=== PATIENT | male | born 1955 | race Caucasian/White ===

== ENCOUNTER 2018-01-19 13:20 | Inpatient (IN) ==
[2018-01-19] MEDS ORDERED: Bisacodyl 10 MG Supp RECTAL PRN (15:31)
[2018-01-19] MEDS ORDERED: Dextrose 50% in Water 50 ML Vial IV.PUSH PRN (15:39)
--- NOTE | 2018-01-19 17:25 | P.HP ---
History of Present Illness Service: [facility] Primary Care Physician: No Primary Care Physician Chief Complaint: Lower extremity weakness History of Present Illness: Patient is a 63-year-old male with past medical history of BPH, diabetes type 2 , peripheral neuropathy who initially came into [facility] near [facility] in August diagnosed with DKA. Patient was readmitted to the hospital in [place] for a 3-week stay for pneumonia. He was doing well but has been back to [facility] in [place] due to increasing or worsening bilateral lower extremity weakness, dizziness. Patient also reports multiple episodes of dropping his blood pressure. Per review of records patient was working with physical therapy in the outpatient setting and felt dizzy and noted that his blood pressure dropped to 60/45 and was transferred to the hospital. He was diagnosed with orthostatic hypotension secondary to autonomic peripheral neuropathy as well as volume depletion. Patient was provided with compression stockings, abdominal binder, his Coreg was changed to metoprolol. He was seen by plumber assistant and recommended to have outpatient tilt table test. Per review of records, patient also was diagnosed with diabetic neuropathy versus spinal stenosis versus CI DP and was started on Lyrica 50 mg p.o. 3 times a day as needed and recently started on prednisone during his previous hospital admission. His hospitalization was also complicated with hyponatremia , diagnosed with systolic congestive heart failure with an EF of 40% stress test showed no ischemic changes, EKG showed sinus tach with no acute ischemic changes. Patient also found to have urinary retention were in Chowdhury catheter was placed recommended to follow-up for cystoscopy and urodynamics in the outpatient. Currently on finasteride versus Flomax secondary to syncopal episodes and orthostatic hypotension. He was admitted to [place] [facility] on . While in [place], patient continued to have orthostatic hypotension. His antihypertensive medications were held. Bilateral lower extremity weakness continues. MRI of the brain was negative. MRI of the lumbar spine showed degenerative disease at both L5-S1 and L4-L5, impressive muscular edema in the paravertebral musculature posteriorly, correlate for diffuse myositis. MRI of the cervical spine showed multilevel disc protrusions with mild degree of canal stenosis at C4-5 and C5-6 and a symmetrically left-sided foraminal stenosis at C6-7. Thoracic MRI showed mild compression fracture deformities at T5, T6 and T7 vertebral bodies with mild marrow edema. Appears to be acute on subacute. No retropulsion. Mild disc bulge at T8-9 with mild flattening of the anterior thecal sac. Neurosurgery was consulted for the patient for continued weakness in his bilateral lower extremities and multiple falls since August. 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 No intervention recommended from the neurological standpoint. Patient was seen by Dr. 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 Recommending IVIG or plasmapheresis. He is now transferred to the inpatient setting for IVIG administration. Patient seen and examined today. at the bedside. Reports aside from bilateral lower extremity weakness states he is doing okay. Reports urinary retention with Chowdhury catheter in place. Denies any dysuria but states because of the urinary tract infection he is unable to void properly and having dysuria prior. After being given antibiotics states that the dysuria has improved. States bowel incontinence. States he is able to feel the urge but has no control on it. States after his hospitalization for DKA his diabetes has been fairly controlled at home. Patient states that he was also worked up for Nurys Sprague in [facility]. States he continues to have occasional dizziness and orthostatic hypotension but is able to be better compared to before as he prepares himself to be sitting up prior to standing. Denies pain and discomfort. Denies SOB/ dyspnea. Denies chest pain, palpitations, headaches. Denies fevers, chills, n/v/d. Denies dysuria. Inpatient Certification: I certify that the inpatient services were ordered in accordance with Medicare regulations governing the order. This includes certification that hospital inpatient services are reasonable and necessary and in the case of services not specified as inpatient-only under 42 CFR 419.22(n), that they are appropriately provided as inpatient services in accordance to with the 2-midnight benchmark under 43 CFR 412.3(e) Estimated Total Length of Stay (Days): 2 Plans for Post Hospital Care: Other Review of Systems All other systems reviewed negative except as stated [facility] - History History Provided By: Family Member - Medical History Medical History: Medical History (Last Updated 01/10/18 @ 23:02 by Carine Vasquez LPN) BPH (benign prostatic hyperplasia) Blind in both eyes Cataracts, bilateral Diabetes mellitus Hypertension - Surgical History Surgical History: Surgical History (Last Updated 01/10/18 @ 23:02 by Carine Vasquez LPN) No history of previous surgery - Family History Family History: Family History (Last Updated 01/19/18 @ 17:12 by JEFFREY York) Father Heart attack Mother Diabetes - Social History I have reviewed the patient's Social History: Yes - Tobacco History Second Hand Smoke Exposure: No Smoking Status: Never smoker - Alcohol History How Often Do You Have a Drink Containing Alcohol: Never - Substance Use History Substance History: No History of Abuse Medications and Allergies Active Medications: Active Medications Acetaminophen (Tylenol) 650 mg PO Q4H PRN PRN Reason: Temp > 100.4 Al Hydroxide/Mg Hydroxide (Milk Of Magnesia Liq) 30 ml PO Q12H PRN PRN Reason: Mild Constipation Aspirin (Ecotrin) 81 mg PO DAILY GABRIELA Bisacodyl (Dulcolax Supp) 10 mg RECTAL DAILY PRN PRN Reason: SEVERE CONSITIPATION Dextrose (D50w Vial) 50 ml IV.PUSH UNSCH PRN PRN Reason: PER HYPOGLYCEMIA PROTOCOL Enoxaparin Sodium (Lovenox Inj) 40 mg SQ Q24H GABRIELA Famotidine (Pepcid) 20 mg PO BID GABRIELA Finasteride (Proscar) 5 mg PO DAILY GABRIELA Glucagon (Glucagon Inj) 1 mg OTHER PRN PRN PRN Reason: for Hypoglycemia Protocol Insulin Aspart (Novolog Insulin Correctional Sugar Inj) 0 unit SQ ACHS GABRIELA; Protocol Insulin Detemir (Levemir Inj) 10 unit SQ BID GABRIELA Lactulose (Lactulose Liq) 30 ml PO DAILY PRN PRN Reason: SEVERE CONSITIPATION Midodrine (Proamatine) 5 mg PO TID@0700,1200,1700 GABRIELA Ondansetron HCl (Zofran Inj) 4 mg IV.PUSH Q6H PRN PRN Reason: NAUSEA OR VOMITING Oxycodone/Acetaminophen (Percocet 5/325 Mg) 1 tab PO Q6H PRN PRN Reason: Pain 5-10 Potassium Chloride (K-Dur) 20 meq PO BID [facility] Pregabalin (Lyrica) 50 mg PO Q8HR GABRIELA Senna/Docusate Sodium (Li-Colace) 1 tab PO BID [facility] Sennosides (Senokot) 17.2 mg PO Q12H PRN PRN Reason: Moderate Constipation Sodium Chloride (Ns Flush) 2 ml IV.FLUSH BID GABRIELA Sodium Chloride (Ns Flush) 2 ml IV.FLUSH PRN PRN PRN Reason: FLUSH AFTER USING IV ACCESS Tetracycline HCl (Sumycin) 500 mg PO Q6HR [facility] Allergies Allergy/AdvReac Type Severity Reaction Status Date / Time No Known Allergies Allergy Verified 01/09/18 18:52 Home Medications Medication Instructions Recorded Confirmed Type acetaminophen 650 mg PO Q8H PRN 01/09/18 01/09/18 History aspirin [Aspir-81] 81 mg PO DAILY 01/09/18 01/09/18 History docusate sodium 1 tab BID 01/09/18 01/16/18 History famotidine 20 mg PO BID 01/09/18 01/09/18 History insulin glargine 18 unit SUBCUT BID 01/09/18 01/09/18 History insulin regular human 1 sliding scale dose SUBCUT UD 01/09/18 01/09/18 History lisinopril 2.5 mg PO DAILY 01/09/18 01/09/18 History metoprolol succinate 50 mg PO DAILY 01/09/18 01/09/18 History ondansetron HCl 4 mg PO QID PRN 01/09/18 01/09/18 History oxycodone-acetaminophen 1 tab PO Q4-6H PRN 01/09/18 01/09/18 History polyethylene glycol 3350 17 g PO BID 01/09/18 01/09/18 History potassium chloride 20 meq PO BID 01/09/18 01/09/18 History pregabalin 50 mg PO TID 01/09/18 01/09/18 History Exam Narrative: GENERAL: This is a thin appearing, pleasant, well-developed patient, in no apparent distress. SKIN: Warm and dry. HEENT: Normocephalic. Nose without bleeding. Airway patent. Pupils round. NECK: Trachea midline. CARDIOVASCULAR: Regular rate and rhythm without murmurs, gallops, or rubs. RESPIRATORY: Clear to auscultation. Breath sounds equal bilaterally. No wheezes , rales, or rhonchi. GASTROINTESTINAL: Abdomen soft, non-tender, nondistended. Bowel Sounds normoactive x4. : Chowdhury in place yellow urine MUSCULOSKELETAL: Extremities without clubbing, cyanosis, or edema. NEUROLOGICAL: Awake and alert. Oriented to time, place, person. Normal speech. BUE 5/5 equal strength. BLE intact sensation, +2 pulses bilaterally. Right lower extremity 2/5, left lower extremity 3/5. Weaker dorsi and plantarflex on the right lower extremity. No foot drop noted. Caprini VTE Risk Assessment Caprini VTE Risk Assessment: Moderate/High Risk (score >= 2) Caprini Risk Assessment Model: Point Value = 1 Point Value = 2 Point Value = 3 Point Value = 5 Age 41-60 Minor surgery BMI > 25 kg/m2 Swollen legs Varicose veins or History of unexplained or recurrent spontaneous Oral contraceptives or hormone replacement Sepsis (< 1 month) Serious lung disease, including pneumonia (< 1 month) Abnormal pulmonary function Acute myocardial infarction Congestive heart failure (< 1 month) History of inflammatory bowel disease Medical patient at bed rest Age 61-74 Arthroscopic surgery Major open surgery (> 45 min) Laparoscopic surgery (> 45 min) Malignancy Confined to bed (> 72 hours) Immobilizing plaster cast Central venous access Age >= 75 History of VTE Family history of VTE Factor V Leiden Prothrombin 12363T Lupus anticoagulant Anticardiolipin antibodies Elevated serum homocysteine Heparin-induced thrombocytopenia Other congenital or acquired thrombophilia Stroke (< 1 month) Elective arthroplasty Hip, pelvis, or leg fracture Acute spinal cord injury (< 1 month) Prophylaxis Regimen: Total Risk Factor Score Risk Level Prophylaxis Regimen 0-1 Low Early ambulation 2 Moderate Order ONE of the following: *Sequential Compression Device (SCD) *Heparin 5000 units SQ BID 3-4 Higher Order ONE of the following medications: *Heparin 5000 units SQ TID *Enoxaparin/Lovenox 40 mg SQ daily (WT < 150 kg, CrCl > 30 mL/min) *Enoxaparin/Lovenox 30 mg SQ daily (WT < 150 kg, CrCl > 10-29 mL/min) *Enoxaparin/Lovenox 30 mg SQ BID (WT < 150 kg, CrCl > 30 mL/min) AND/OR *Sequential Compression Device (SCD) 5 or more Highest Order ONE of the following medications: *Heparin 5000 units SQ TID (Preferred with Epidurals) *Enoxaparin/Lovenox 40 mg SQ daily (WT < 150 kg, CrCl > 30 mL/min) *Enoxaparin/Lovenox 30 mg SQ daily (WT < 150 kg, CrCl > 10-29 mL/min) *Enoxaparin/Lovenox 30 mg SQ BID (WT < 150 kg, CrCl > 30 mL/min) AND *Sequential Compression Device (SCD) Assessment and Plan - Plan Patient is a 62-year-old male with past medical history of DM 2, BPH, urinary retention, peripheral neuropathy [facility] and was transferred for continuous bilateral lower extremity weakness 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 Nguyen, will reconsult -Plan for IVIG administration per neurology -Continue with physical therapy and occupational therapy Orthostatic hypotension -Continue to hold off on BP medication -Midrin 3 times daily -Increased risk for falls, monitor. Assist with transfers. DM 2 Peripheral neuropathy -Continue with Lyrica 3 times daily, Percocet as needed -Continue Levemir 10 units twice daily, insulin sliding scale -Monitor Accu-Cheks Urinary retention -Currently with Chowdhury catheter -Continue finasteride Urinary tract infection -Recent cultures growing staph epidermidis, multidrug-resistant -Previously on Bactrim, will switch over to tetracycline based on sensitivities -Continue to monitor. Systolic heart failure, EF 40% Not in exacerbation -Previously was on BERTIN inhibitor but was held secondary to orthostatic BP DVT Prop Lovenox GI Prop Pepcid Code Status: Full code Discussed Condition With: Patient, nursing, , JEFFREY Thompson Discharge Planning: Going back to [place] to continue with rehabilitation when IVIG administration is completed
[2018-01-19] MEDS: Enoxaparin Inj 40 MG/0.4 ML Syringe SQ SCH (19:46)
[2018-01-19] MEDS: Insulin NovoLOG Aspart Correctional Sugar Inj SQ SCH ×2 (19:47→22:05)
[2018-01-19] MEDS: TETRACYCLINE 250 MG PO SCH ×2 (19:48→23:46)
[2018-01-19] MEDS: Pregabalin 25 MG Capsule PO SCH (21:57)
[2018-01-19] MEDS: Senna/Docusate Sodium 8.6/50 MG Tablet PO SCH (21:58)
[2018-01-19] MEDS: Famotidine 20 MG Tablet PO SCH (21:59)
[2018-01-19] MEDS: Insulin Detemir Inj 1,000 UNIT/10 ML Vial SQ SCH (21:59)
[2018-01-19] MEDS ORDERED: IVIG IMMUNE GLOBULIN IV.SIG SCH (23:00)
[2018-01-20] MEDS: Acetaminophen 325 MG Tablet PO PRN ×2 (05:25→14:04)
[2018-01-20] MEDS: Pregabalin 25 MG Capsule PO SCH ×3 (05:26→21:07)
[2018-01-20] MEDS: TETRACYCLINE 250 MG PO SCH ×4 (05:26→23:00)
[2018-01-20 06:57] LABS: Baso % (Auto) 0.8 % (0.0-2.0); Eos # (Auto) 0.1 th/mm3 (0.0-0.4); Eos % (Auto) 2.7 % (0.0-4.0); Hematocrit 40.1 % (39.0-51.0); Hemoglobin 14.3 gm/dL (13.0-17.0); Lymph # (Auto) 1.3 th/mm3 (1.0-4.8); Lymph % (Auto) 28.9 % (9.0-44.0); Mean Corpuscular HGB Conc 35.6 % (32.0-36.0); Mean Corpuscular Hemoglobin 30.6 pg (27.0-34.0); Mean Platelet Volume 7.6 fL (7.0-11.0); Mono # (Auto) 0.5 th/mm3 (0.0-0.9); Mono % (Auto) 11.3 % (0.0-8.0); Neut # (Auto) 2.5 th/mm3 (1.8-7.7); Neut % (Auto) 56.3 % (16.0-70.0); Platelet Count 185 th/mm3 (150-450); Red Blood Count 4.66 mil/mm3 (4.50-5.90); Red Cell Distribution Width 17.2 % (11.6-17.2); White Blood Count 4.5 th/mm3 (4.0-11.0)
[2018-01-20 07:19] LABS: Alanine Aminotransferase 17 U/L (12-78); Albumin 2.6 g/dL (3.4-5.0); Alkaline Phosphatase 63 U/L (45-117); Anion Gap 6 meq/L (5-15); Aspartate Aminotransferase 8 U/L (15-37); Blood Urea Nitrogen 7 mg/dL (7-18); Calcium 7.4 mg/dL (8.5-10.1); Carbon Dioxide 25.8 meq/L (21.0-32.0); Chloride 104 meq/L (98-107); Glomerular Filtration Rate Greater Than 89 mL/min (>89); Glucose,Random 99 mg/dL (74-106); Potassium 3.9 meq/L (3.5-5.1); Sodium 136 meq/L (136-145); Total Protein 6.1 g/dL (6.4-8.2)
[2018-01-20] MEDS: Insulin NovoLOG Aspart Correctional Sugar Inj SQ SCH ×4 (09:46→21:10)
[2018-01-20] MEDS: Senna/Docusate Sodium 8.6/50 MG Tablet PO SCH ×2 (09:48→21:07)
[2018-01-20] MEDS: Insulin Detemir Inj 1,000 UNIT/10 ML Vial SQ SCH ×2 (09:49→21:07)
[2018-01-20] MEDS: Famotidine 20 MG Tablet PO SCH ×2 (09:49→21:07)
[2018-01-20] MEDS: Finasteride 5 MG Tablet PO SCH (09:54)
[2018-01-20] MEDS: Enoxaparin Inj 40 MG/0.4 ML Syringe SQ SCH (17:28)
--- NOTE | 2018-01-20 18:18 | P.PNIM ---
Subjective Interval history: All of visit BPH, DM 2, peripheral neuropathy, suspicion for GBS for IVIG infusion. Patient seen and examined today laying in bed. Reports he is doing well. States that he had one infusion done for IVIG. States that he still waiting for Dr. Nguyen. Discussed with patient Dr. Nguyen will be the one deciding on the IVIG doses that he is going to get. Discussed with patient that he will have physical therapy while he is inpatient and will be discharged back to [place] after IVIG infusion. Verbalized understanding. Denies pain and discomfort. Denies SOB/ dyspnea. Denies chest pain, palpitations, headaches, dizziness. Denies fevers, chills, n/v/d. Denies dysuria. Physical Exam Vital signs: Vital Signs 01/19/18 20:00 01/19/18 22:58 01/19/18 23:10 Temperature 98.6 F 98.2 F Pulse Rate 88 92 H 83 Respiratory Rate 20 18 18 Blood Pressure 136/78 158/90 H 158/90 H Pulse Oximetry 97 96 01/20/18 00:00 01/20/18 04:00 01/20/18 08:00 Temperature 98.7 F 98.0 F 97.9 F Pulse Rate 86 92 H 82 Respiratory Rate 20 20 20 Blood Pressure 136/72 132/79 136/73 Pulse Oximetry 96 97 95 01/20/18 12:00 01/20/18 16:00 Temperature 98.0 F 98.3 F Pulse Rate 83 76 Respiratory Rate 18 18 Blood Pressure 147/86 H 182/87 H Pulse Oximetry 94 L 98 Intake & Output 01/19/18 01/20/18 01/20/18 18:59 06:59 18:59 Intake Total 300 / 300 Output Total 700 / 700 Balance -700 / -700 300 / 300 Weight 70.392 kg 70.4 kg Intake: IV 300 / 300 Privigen Inj 30 GM In Bag/ 300 / 300 Syringe 1 EACH @ 37.5 mls/hr IV .SIG Q24HR [facility] Rx#:[id number] Output: Urine 700 / 700 Other: Date of Last Bowel Movement 01/17/18 Weight On Admission 70.392 kg Narrative: GENERAL: This is a thin appearing, pleasant, well-developed patient, in no apparent distress. SKIN: Warm and dry. HEENT: Normocephalic. Nose without bleeding. Airway patent. Pupils round. NECK: Trachea midline. CARDIOVASCULAR: Regular rate and rhythm without murmurs, gallops, or rubs. RESPIRATORY: Clear to auscultation. Breath sounds equal bilaterally. No wheezes , rales, or rhonchi. GASTROINTESTINAL: Abdomen soft, non-tender, nondistended. Bowel Sounds normoactive x4. : Chowdhury in place yellow urine MUSCULOSKELETAL: Extremities without clubbing, cyanosis, or edema. NEUROLOGICAL: Awake and alert. Oriented to time, place, person. Normal speech. BUE 5/5 equal strength. BLE intact sensation, +2 pulses bilaterally. Right lower extremity 2/5, left lower extremity 3/5. Weaker dorsi and plantarflex on the right lower extremity. No foot drop noted. Results - Labs CBC & Chem 7: 01/20/18 05:38 01/20/18 05:38 Laboratory Results - last 24 hr 01/19/18 01/20/18 01/20/18 22:02 05:38 05:38 WBC 4.5 RBC 4.66 Hgb 14.3 Hct 40.1 MCV 86.0 MCH 30.6 MCHC 35.6 RDW 17.2 Plt Count 185 MPV 7.6 Neut % (Auto) 56.3 Lymph % (Auto) 28.9 Sterling % (Auto) 11.3 H Eos % (Auto) 2.7 Baso % (Auto) 0.8 Neut # (Auto) 2.5 Lymph # (Auto) 1.3 Sterling # (Auto) 0.5 Eos # (Auto) 0.1 Baso # (Auto) 0.0 WBC Differential . Differential Comment Auto diff final Sodium 136 Potassium 3.9 Chloride 104 Carbon Dioxide 25.8 Anion Gap 6 BUN 7 Creatinine 0.35 L Estimated GFR Greater than 89 POC Glucose 161 H Random Glucose 99 Calcium 7.4 L* Calcium Adj for Albumin 8.5 Total Bilirubin 0.9 AST 8 L ALT 17 Alkaline Phosphatase 63 Total Protein 6.1 L Albumin 2.6 L 01/20/18 01/20/18 01/20/18 07:57 12:52 15:59 WBC RBC Hgb Hct MCV MCH MCHC RDW Plt Count MPV Neut % (Auto) Lymph % (Auto) Sterling % (Auto) Eos % (Auto) Baso % (Auto) Neut # (Auto) Lymph # (Auto) Sterling # (Auto) Eos # (Auto) Baso # (Auto) WBC Differential Differential Comment Sodium Potassium Chloride Carbon Dioxide Anion Gap BUN Creatinine Estimated GFR POC Glucose 136 H 116 H 107 Random Glucose Calcium Calcium Adj for Albumin Total Bilirubin AST ALT Alkaline Phosphatase Total Protein Albumin Assessment and Plan - Plan Patient is a 62-year-old male with past medical history of DM 2, BPH, urinary retention, peripheral [facility] and was transferred for continuous bilateral lower extremity weakness 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 Nguyen, will reconsult -IVIG administration done today, dose per neurology -Continue with physical therapy and occupational therapy Orthostatic hypotension -Continue to hold off on BP medication -Midrin 3 times daily -Increased risk for falls, monitor. Assist with transfers. DM 2 Peripheral neuropathy -Continue with Lyrica 3 times daily, Percocet as needed -Continue Levemir 10 units twice daily, insulin sliding scale -Monitor Accu-Cheks Urinary retention -Currently with Chowdhury catheter -Continue finasteride Urinary tract infection -Recent cultures growing staph epidermidis, multidrug-resistant -Previously on Bactrim, switched to tetracycline based on sensitivities -Continue to monitor. Systolic heart failure, EF 40% Not in exacerbation -Previously was on BERTIN inhibitor but was held secondary to orthostatic BP DVT Prop Lovenox GI Prop Pepcid CODE STATUS: Full code Discussed with patient, nursing Discharge Planning: Going back to [place] to continue with rehabilitation when IVIG administration is completed
[2018-01-20] MEDS ORDERED: IVIG (Immune Globulin) Inj 30 GM in Syringe/Bag 1 EACH IV.SIG SCH (23:00)
[2018-01-21] MEDS: Pregabalin 25 MG Capsule PO SCH ×3 (06:39→22:46)
[2018-01-21] MEDS: TETRACYCLINE 250 MG PO SCH ×3 (06:39→18:05)
[2018-01-21] MEDS: Senna/Docusate Sodium 8.6/50 MG Tablet PO SCH ×2 (08:39→22:47)
[2018-01-21] MEDS: Famotidine 20 MG Tablet PO SCH ×2 (08:39→22:46)
[2018-01-21] MEDS: Acetaminophen 325 MG Tablet PO PRN (08:40)
[2018-01-21] MEDS: Insulin Detemir Inj 1,000 UNIT/10 ML Vial SQ SCH ×2 (08:40→21:40)
[2018-01-21] MEDS: Finasteride 5 MG Tablet PO SCH (08:40)
[2018-01-21] MEDS: Insulin NovoLOG Aspart Correctional Sugar Inj SQ SCH ×4 (08:41→22:47)
--- NOTE | 2018-01-21 10:27 | P.PNIM ---
Subjective Interval history: Follow-up visit BPH, DM 2, peripheral neuropathy, GBS for IVIG infusion. Patient seen and examined today laying in bed. Reports he is doing well. Patient states he got a second dose of IVIG last night. Overall doing okay. States he is feeling more discomfort and pain on his leg. Denies SOB/ dyspnea. Denies chest pain, palpitations, headaches, dizziness. Denies fevers, chills, n/ v/d. Physical Exam Vital signs: Vital Signs 01/20/18 12:00 01/20/18 16:00 01/20/18 20:00 Temperature 98.0 F 98.3 F 98.9 F Pulse Rate 83 76 90 Respiratory Rate 18 18 20 Blood Pressure 147/86 H 182/87 H 141/77 H Pulse Oximetry 94 L 98 98 01/20/18 22:59 01/20/18 23:17 01/21/18 04:00 Temperature 98.4 F 98.4 F Pulse Rate 97 H 95 H 101 H Respiratory Rate 20 18 20 Blood Pressure 159/85 H 160/93 H 130/82 Pulse Oximetry 97 97 01/21/18 08:00 Temperature 97.6 F Pulse Rate 93 H Respiratory Rate 20 Blood Pressure 135/89 Pulse Oximetry 98 Intake & Output 01/20/18 01/21/18 01/21/18 18:59 06:59 18:59 Intake Total 300 / 300 300 / 300 Output Total 700 / 700 2200 / 2200 Balance -400 / -400 -1900 / -1900 Intake: IV 300 / 300 Privigen Inj 30 GM In Bag/ 300 / 300 Syringe 1 EACH @ 37.5 mls/hr IV .SIG Q24HR [facility] Rx#:[id number] Other 300 / 300 Output: Urine 700 / 700 2200 / 2200 Other: Date of Last Bowel Movement 01/17/18 01/17/18 # Incontinent Bowel Movements 2 Narrative: GENERAL: This is a thin appearing, pleasant, well-developed patient, in no apparent distress. SKIN: Warm and dry. HEENT: Normocephalic. Nose without bleeding. Airway patent. Pupils round. NECK: Trachea midline. CARDIOVASCULAR: Regular rate and rhythm without murmurs, gallops, or rubs. RESPIRATORY: Clear to auscultation. Breath sounds equal bilaterally. No wheezes , rales, or rhonchi. GASTROINTESTINAL: Abdomen soft, non-tender, nondistended. Bowel Sounds normoactive x4. : Chowdhury in place yellow urine MUSCULOSKELETAL: Extremities without clubbing, cyanosis, or edema. NEUROLOGICAL: Awake and alert. Oriented to time, place, person. Normal speech. BUE 5/5 equal strength. BLE intact sensation, +2 pulses bilaterally. Right lower extremity 2/5, left lower extremity 3/5. Weaker dorsi and plantarflex on the right lower extremity. No foot drop noted. 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 Nguyen, appreciate recommendations -IVIG administration done today, dose per neurology -Continue with physical therapy and occupational therapy Orthostatic hypotension -Continue to hold off on BP medication -Midodrine 3 times daily -Increased risk for falls, monitor. Assist with transfers. DM 2 Peripheral neuropathy -Continue with Lyrica 3 times daily, Percocet as needed -Continue Levemir 10 units twice daily, insulin sliding scale -Monitor Accu-Cheks Urinary retention -Currently with Chowdhury catheter -Continue finasteride Urinary tract infection -Recent cultures growing staph epidermidis, multidrug-resistant -Previously on Bactrim, switched to tetracycline based on sensitivities -Continue to monitor. Systolic heart failure, EF 40% Not in exacerbation -Previously was on BERTIN inhibitor but was held secondary to orthostatic BP DVT Prop Lovenox GI Prop Pepcid CODE STATUS: Full code Discussed with patient, nursing Discharge Planning: Going back to [place] to continue with rehabilitation when IVIG administration is completed
--- NOTE | 2018-01-21 12:36 | P.PNNEU ---
Subjective Subjective Comments: tolerating ivig well. so far has had 2 treatments. Feels aching pain in extremities Active Medications: Active Medications Acetaminophen (Tylenol) 650 mg PO Q4H PRN PRN Reason: Temp > 100.4 Last Admin: 01/21/18 08:40 Dose: 650 mg Al Hydroxide/Mg Hydroxide (Milk Of Magnesia Liq) 30 ml PO Q12H PRN PRN Reason: Mild Constipation Aspirin (Ecotrin) 81 mg PO DAILY [facility] Last Admin: 01/21/18 08:40 Dose: 81 mg Bisacodyl (Dulcolax Supp) 10 mg RECTAL DAILY PRN PRN Reason: SEVERE CONSITIPATION Dextrose (D50w Vial) 50 ml IV.PUSH UNSCH PRN PRN Reason: PER HYPOGLYCEMIA PROTOCOL Enoxaparin Sodium (Lovenox Inj) 40 mg SQ Q24H [facility] Last Admin: 01/20/18 17:28 Dose: 40 mg Famotidine (Pepcid) 20 mg PO BID [facility] Last Admin: 01/21/18 08:39 Dose: 20 mg Finasteride (Proscar) 5 mg PO DAILY [facility] Last Admin: 01/21/18 08:40 Dose: 5 mg Glucagon (Glucagon Inj) 1 mg OTHER PRN PRN PRN Reason: for Hypoglycemia Protocol Immune Globulin 30 gm/ (Miscellaneous Medication) 300 mls @ 21.12 mls/hr IV.SIG Q24H [facility]; Protocol Stop: 01/24/18 22:59 Insulin Aspart (Novolog Insulin Correctional Sugar Inj) 0 unit SQ ACHS [facility]; Protocol Last Admin: 01/21/18 08:41 Dose: Not Given Insulin Detemir (Levemir Inj) 10 unit SQ BID [facility] Last Admin: 01/21/18 08:40 Dose: 10 unit Lactulose (Lactulose Liq) 30 ml PO DAILY PRN PRN Reason: SEVERE CONSITIPATION Midodrine (Proamatine) 5 mg PO TID@0700,1200,1700 [facility] Last Admin: 01/21/18 06:39 Dose: 5 mg Ondansetron HCl (Zofran Inj) 4 mg IV.PUSH Q6H PRN PRN Reason: NAUSEA OR VOMITING Oxycodone/Acetaminophen (Percocet 5/325 Mg) 1 tab PO Q6H PRN PRN Reason: Pain 5-10 Last Admin: 01/21/18 01:53 Dose: 1 tab Potassium Chloride (K-Dur) 20 meq PO BID [facility] Last Admin: 01/21/18 08:40 Dose: 20 meq Pregabalin (Lyrica) 50 mg PO Q8HR [facility] Last Admin: 01/21/18 06:39 Dose: 50 mg Senna/Docusate Sodium (Li-Colace) 1 tab PO BID [facility] Last Admin: 01/21/18 08:39 Dose: Not Given Sennosides (Senokot) 17.2 mg PO Q12H PRN PRN Reason: Moderate Constipation Sodium Chloride (Ns Flush) 2 ml IV.FLUSH BID [facility] Last Admin: 01/21/18 08:41 Dose: 2 ml Sodium Chloride (Ns Flush) 2 ml IV.FLUSH PRN PRN PRN Reason: FLUSH AFTER USING IV ACCESS Tetracycline HCl (Sumycin) 500 mg PO Q6HR [facility] Last Admin: 01/21/18 06:39 Dose: 500 mg Allergies/Adverse Reactions: Allergies Allergy/AdvReac Type Severity Reaction Status Date / Time No Known Allergies Allergy Verified 01/09/18 18:52 Physical Exam Vital signs: Vital Signs 01/20/18 16:00 01/20/18 20:00 01/20/18 22:59 Temperature 98.3 F 98.9 F Pulse Rate 76 90 97 H Respiratory Rate 18 20 20 Blood Pressure 182/87 H 141/77 H 159/85 H Pulse Oximetry 98 98 01/20/18 23:17 01/21/18 04:00 01/21/18 08:00 Temperature 98.4 F 98.4 F 97.6 F Pulse Rate 95 H 101 H 93 H Respiratory Rate 18 20 20 Blood Pressure 160/93 H 130/82 135/89 Pulse Oximetry 97 97 98 Intake & Output 01/20/18 01/21/18 01/21/18 18:59 06:59 18:59 Intake Total 300 / 300 300 / 300 Output Total 700 / 700 2200 / 2200 Balance -400 / -400 -1900 / -1900 Intake: IV 300 / 300 Privigen Inj 30 GM In Bag/ 300 / 300 Syringe 1 EACH @ 37.5 mls/hr IV .SIG Q24HR [facility] Rx#:[id number] Other 300 / 300 Output: Urine 700 / 700 2200 / 2200 Other: Date of Last Bowel Movement 01/17/18 01/17/18 # Incontinent Bowel Movements 2 - Routine Neurological Exam alert CN--absence visual acuity B. o/w normal MOTOR 4/5 BUE and 3/5 BLE Objective Laboratory Results - last 24 hr 01/20/18 01/20/18 01/20/18 12:52 15:59 21:10 POC Glucose 116 H 107 179 H 01/21/18 07:36 POC Glucose 126 H Review/Management - Review/Management Plan: continue ivig for total of 5 treatments
[2018-01-21] MEDS: Enoxaparin Inj 40 MG/0.4 ML Syringe SQ SCH (15:25)
[2018-01-21] MEDS: Baclofen 10 MG Tablet PO SCH ×2 (15:25→22:46)
[2018-01-21] MEDS: Acetaminophen 325 MG Tablet PO SCH (22:46)
[2018-01-21] MEDS: Sodium Chlor 0.9% Inj 500 ML IV.SIG SCH (23:20)
[2018-01-21] MEDS: IVIG (Immune Globulin) Inj 30 GM in Syringe/Bag 1 EACH IV.SIG SCH (23:22)
[2018-01-22] MEDS: TETRACYCLINE 250 MG PO SCH ×5 (01:06→23:32)
[2018-01-22] MEDS: Pregabalin 25 MG Capsule PO SCH ×3 (06:26→23:31)
[2018-01-22] MEDS: Baclofen 10 MG Tablet PO SCH ×3 (06:26→23:31)
[2018-01-22] MEDS: Insulin Detemir Inj 1,000 UNIT/10 ML Vial SQ SCH (09:13)
[2018-01-22] MEDS: Famotidine 20 MG Tablet PO SCH (09:13)
[2018-01-22] MEDS: Finasteride 5 MG Tablet PO SCH (09:13)
[2018-01-22] MEDS: Senna/Docusate Sodium 8.6/50 MG Tablet PO SCH ×2 (09:14→23:53)
[2018-01-22] MEDS: Insulin NovoLOG Aspart Correctional Sugar Inj SQ SCH ×4 (09:14→23:54)
--- NOTE | 2018-01-22 09:58 | P.PNIM ---
Subjective Interval history: Follow-up visit BPH, DM 2, peripheral neuropathy, GBS for IVIG infusion. Patient seen and examined today laying in bed. Increase sensation and pain in the lower extremities. Otherwise states doing okay. Denies SOB/ dyspnea. Denies chest pain, palpitations, headaches, dizziness. Denies fevers, chills, n/ v/d. Physical Exam Vital signs: Vital Signs 01/21/18 12:00 01/21/18 19:23 01/21/18 20:00 Temperature 97.5 F L 98.5 F 97.9 F Pulse Rate 77 80 68 Respiratory Rate 20 20 19 Blood Pressure 161/84 H 151/84 H 153/74 H Pulse Oximetry 98 99 100 01/22/18 00:00 01/22/18 04:00 01/22/18 07:57 Temperature 97.9 F 97.7 F 99 F Pulse Rate 86 88 73 Respiratory Rate 18 18 18 Blood Pressure 171/93 H 157/90 H 155/96 H Pulse Oximetry 99 97 99 Intake & Output 01/21/18 01/22/18 01/22/18 18:59 06:59 18:59 Intake Total 750 / 750 500 / 500 Output Total 500 / 500 2200 / 2200 Balance 250 / 250 -1700 / -1700 Intake: IV 500 / 500 NS Inj 500 ML @ 500 mls/hr IV. 500 / 500 SIG Q24H [facility] Rx#:[id number] Oral 750 / 750 Output: Urine 500 / 500 2200 / 2200 Other: Date of Last Bowel Movement 01/21/18 01/21/18 # Bowel Movements 1 Narrative: GENERAL: This is a thin appearing, pleasant, well-developed patient, in no apparent distress. SKIN: Warm and dry. HEENT: Normocephalic. Nose without bleeding. Airway patent. Pupils round. NECK: Trachea midline. CARDIOVASCULAR: Regular rate and rhythm without murmurs, gallops, or rubs. RESPIRATORY: Clear to auscultation. Breath sounds equal bilaterally. No wheezes , rales, or rhonchi. GASTROINTESTINAL: Abdomen soft, non-tender, nondistended. Bowel Sounds normoactive x4. : Chowdhury in place yellow urine MUSCULOSKELETAL: Extremities without clubbing, cyanosis, or edema. NEUROLOGICAL: Awake and alert. Oriented to time, place, person. Normal speech. BUE 5/5 equal strength. BLE intact sensation, +2 pulses bilaterally. Right lower extremity 2/5, left lower extremity 3/5. Weaker dorsi and plantarflex on the right lower extremity. No foot drop noted. 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 Nguyen, appreciate recommendations -IVIG administration, dose per neurology - 5 doses -Continue with physical therapy and occupational therapy -Increase pain BLE, pain medication with bowel regimen -Percocet, Lyrica Orthostatic hypotension -Continue to hold off on BP medication -Midodrine 3 times daily -Increased risk for falls, monitor. Assist with transfers. DM 2 Peripheral neuropathy -Continue with Lyrica 3 times daily, Percocet as needed -Continue Levemir 10 units twice daily, insulin sliding scale -Monitor Accu-Cheks Urinary retention -Currently with Chowdhury catheter -Continue finasteride Urinary tract infection -Recent cultures growing staph epidermidis, multidrug-resistant -Previously on Bactrim, switched to tetracycline based on sensitivities -Continue to monitor. Systolic heart failure, EF 40% Not in exacerbation -Previously was on BERTIN inhibitor but was held secondary to orthostatic BP DVT Prop Lovenox GI Prop Pepcid CODE STATUS: Full code Discussed with patient, nursing Discharge Planning: Going back to [place] to continue with rehabilitation when IVIG administration is completed
[2018-01-22] MEDS: Enoxaparin Inj 40 MG/0.4 ML Syringe SQ SCH (17:49)
[2018-01-22] MEDS: Acetaminophen 325 MG Tablet PO SCH (23:32)
[2018-01-23] MEDS: Insulin Detemir Inj 1,000 UNIT/10 ML Vial SQ SCH ×3 (00:03→21:11)
[2018-01-23] MEDS: Famotidine 20 MG Tablet PO SCH ×3 (00:04→21:15)
[2018-01-23] MEDS: Sodium Chlor 0.9% Inj 500 ML IV.SIG SCH ×2 (00:05→21:16)
[2018-01-23] MEDS: IVIG (Immune Globulin) Inj 30 GM in Syringe/Bag 1 EACH IV.SIG SCH ×2 (00:25→23:04)
[2018-01-23] MEDS: TETRACYCLINE 250 MG PO SCH ×4 (06:54→23:35)
[2018-01-23] MEDS: Baclofen 10 MG Tablet PO SCH ×3 (06:54→21:15)
[2018-01-23] MEDS: Pregabalin 25 MG Capsule PO SCH ×3 (06:58→21:15)
[2018-01-23] MEDS: Finasteride 5 MG Tablet PO SCH (08:49)
[2018-01-23] MEDS: Insulin NovoLOG Aspart Correctional Sugar Inj SQ SCH ×4 (08:49→21:12)
[2018-01-23] MEDS: Senna/Docusate Sodium 8.6/50 MG Tablet PO SCH ×2 (08:49→21:14)
--- NOTE | 2018-01-23 10:57 | P.PNIM ---
Subjective Interval history: Follow-up visit BPH, DM 2, peripheral neuropathy, GBS for IVIG infusion. Patient seen and examined today laying in bed.states he received his IVIG infusion. States he is doing well. Denies SOB/ dyspnea. Denies chest pain, palpitations, headaches, dizziness. Denies fevers, chills, n/v/d. Physical Exam Vital signs: Vital Signs 01/22/18 12:00 01/22/18 16:00 01/22/18 20:00 Temperature 98.2 F 98.2 F 97.6 F Pulse Rate 92 H 82 92 H Respiratory Rate 18 Blood Pressure 139/74 158/81 H 157/86 H Pulse Oximetry 97 98 96 01/23/18 00:09 01/23/18 00:25 01/23/18 00:43 Temperature 98.7 F Pulse Rate 90 95 H Respiratory Rate 18 Blood Pressure 155/83 H 145/87 H Pulse Oximetry 99 01/23/18 04:00 01/23/18 04:58 01/23/18 07:35 Temperature 98.4 F 97.7 F Pulse Rate 90 96 H Respiratory Rate 20 Blood Pressure 150/90 H 133/88 Pulse Oximetry 98 97 Intake & Output 01/22/18 01/23/18 01/23/18 18:59 06:59 18:59 Intake Total 1940 / 1940 442 / 442 Output Total 2600 / 2600 2600 / 2600 Balance -660 / -660 -2158 / -2158 Intake: IV 0 / 0 D5W Inj 500 ML @ 30 mls/hr 0 / 0 OTHER Q24H [facility] Rx#:[id number] Oral 940 / 940 442 / 442 Tube Feeding 1000 / 1000 Output: Urine 1700 / 1700 2600 / 2600 Urine Amount (Catheter) 900 / 900 Indwelling Urethral Catheter 900 / 900 Other: Date of Last Bowel Movement 01/22/18 01/22/18 01/22/18 # Incontinent Bowel Movements 1 Narrative: GENERAL: This is a thin appearing, pleasant, well-developed patient, in no apparent distress. SKIN: Warm and dry. HEENT: Normocephalic. Nose without bleeding. Airway patent. Pupils round. NECK: Trachea midline. CARDIOVASCULAR: Regular rate and rhythm without murmurs, gallops, or rubs. RESPIRATORY: Clear to auscultation. Breath sounds equal bilaterally. No wheezes , rales, or rhonchi. GASTROINTESTINAL: Abdomen soft, non-tender, nondistended. Bowel Sounds normoactive x4. : Chowdhury in place yellow urine MUSCULOSKELETAL: Extremities without clubbing, cyanosis, or edema. NEUROLOGICAL: Awake and alert. Oriented to time, place, person. Normal speech. BUE 5/5 equal strength. BLE intact sensation, +2 pulses bilaterally. Right lower extremity 2/5, left lower extremity 3/5. Weaker dorsi and plantarflex on the right lower extremity. No foot drop noted. - Urinary Catheter Management Indwelling Urethral Catheter Cath placed during this visit: yes Reason for continuing: Acute urinary retention Insertion date: 01/19/18 Results - Labs CBC & Chem 7: 01/20/18 05:38 01/20/18 05:38 Laboratory Results - last 24 hr 01/22/18 01/22/18 01/22/18 11:20 17:19 23:27 POC Glucose 190 H 204 H 150 H 01/23/18 07:34 POC Glucose 125 H Assessment and Plan - Plan Patient is a 62-year-old male with past medical history of DM 2, BPH, urinary retention, peripheral neuropathy initially at [facility] and was transferred for continuous bilateral lower extremity weakness 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 Nguyen, appreciate recommendations -IVIG administration, dose per neurology - 5 doses -Continue with physical therapy and occupational therapy -pain management Percocet, Lyrica with bowel regimen Orthostatic hypotension -Continue to hold off on BP medication -Midodrine 3 times daily -Increased risk for falls, monitor. Assist with transfers. DM 2 Peripheral neuropathy -Continue with Lyrica 3 times daily, Percocet as needed -Continue Levemir 10 units twice daily, insulin sliding scale -Monitor Accu-Cheks Urinary retention -Currently with Chowdhury catheter -Continue finasteride Urinary tract infection -Recent cultures growing staph epidermidis, multidrug-resistant -Previously on Bactrim, switched to tetracycline based on sensitivities -Continue to monitor. Systolic heart failure, EF 40% Not in exacerbation -Previously was on BERTIN inhibitor but was held secondary to orthostatic BP DVT Prop Lovenox GI Prop Pepcid CODE STATUS: Full code Discussed with patient, nursing Discharge Planning: Going back to [place] to continue with rehabilitation when IVIG administration is completed, 01/23/18
--- NOTE | 2018-01-23 12:45 | P.DIET ---
Nutritional Evaluation Type of nutrition evaluation: initial Nutrition screening: Weight Loss > 10 lbs Subjective Subjective Comments: Transferred from [place]. Eating 100%. Objective - Diagnosis GBS - Objective Body Mass Index: 19.9 % IBW: 82 Body Weight Used for Calculations: Actual (70.4 kg) Energy Needs - Lower Range (kCal/kg): 30 Energy Needs - Upper Range (kCal/kg): 35 Lower Limit kCal/kg (kCals): 2,112 Upper Limit kCal/kg (kCals): 2,464 Lower Limit Protein Factor (Grams per Kg): 1.2 Upper Limit Protein Factor (Grams per Kg): 1.5 Lower Protein Needs (Protein): 85 Upper Protein Needs (Protein): 106 Dietitian Reviewed in Medical Record: Current diet, Curent medications, Intake & Output, Labs, Medical history Diet Order: 1999 ADA Assessment Assessment: Pt is at high nutrition risk 2' to unintentional weight loss with a BMI of 19.9. Pt's po intake is good at this time. Will send [email or web address] for added nutrition; each 8 oz serving provide 220 kcals and [address] will monitor supplement acceptance. Recommendations: Continue diet as ordered Chema Bland tid RD following Dietitian to Monitor: Supplement acceptance, Intake & Output, Diet tolerance, PO Intake, Medical course
--- NOTE | 2018-01-23 16:44 | P.PNNEU ---
Subjective Subjective Comments: Patient has completed 4 ivig treatments and number 5/5 is today He feels he is having improvement in left hand strength but no change in LE strength Active Medications: Active Medications Acetaminophen (Tylenol) 650 mg PO Q4H PRN PRN Reason: Temp > 100.4 Last Admin: 01/21/18 08:40 Dose: 650 mg Acetaminophen (Tylenol) 650 mg PO Q24H [facility] Stop: 01/24/18 21:59 Last Admin: 01/22/18 23:32 Dose: 650 mg Al Hydroxide/Mg Hydroxide (Milk Of Magnrohit Liq) 30 ml PO Q12H PRN PRN Reason: Mild Constipation Aspirin (Ecotrin) 81 mg PO DAILY [facility] Last Admin: 01/23/18 08:49 Dose: 81 mg Baclofen (Lioresal) 10 mg PO Q8HR [facility] Last Admin: 01/23/18 12:59 Dose: 10 mg Bisacodyl (Dulcolax Supp) 10 mg RECTAL DAILY PRN PRN Reason: SEVERE CONSITIPATION Dextrose (D50w Vial) 50 ml IV.PUSH UNSCH PRN PRN Reason: PER HYPOGLYCEMIA PROTOCOL Diphenhydramine HCl (Benadryl) 25 mg PO Q24H [facility] Stop: 01/24/18 21:59 Last Admin: 01/22/18 23:31 Dose: 25 mg Diphenhydramine HCl (Benadryl Inj) 50 mg IV.PUSH PRN PRN PRN Reason: ALLERGIC REACTION Stop: 01/24/18 22:04 Enoxaparin Sodium (Lovenox Inj) 40 mg SQ Q24H [facility] Last Admin: 01/22/18 17:49 Dose: 40 mg Epinephrine HCl (Epinephrine (1:1000) Inj) 0.3 mg OTHER Q10M PRN PRN Reason: Anaphylactic Reaction Stop: 01/24/18 22:04 Famotidine (Pepcid) 20 mg PO BID [facility] Last Admin: 01/23/18 08:49 Dose: 20 mg Finasteride (Proscar) 5 mg PO DAILY [facility] Last Admin: 01/23/18 08:49 Dose: 5 mg Glucagon (Glucagon Inj) 1 mg OTHER PRN PRN PRN Reason: for Hypoglycemia Protocol Immune Globulin 30 gm/ (Miscellaneous Medication) 300 mls @ 21.12 mls/hr IV.SIG Q24H [facility]; Protocol Stop: 01/24/18 22:59 Last Admin: 01/23/18 00:25 Dose: 21.12 mls/hr Dextrose (D5w Inj) 500 mls @ 30 mls/hr OTHER Q24H [facility] Stop: 01/24/18 22:59 Last Admin: 01/23/18 00:31 Dose: 30 mls/hr Sodium Chloride (Ns Inj) 500 mls @ 500 mls/hr IV.SIG Q24H [facility] Stop: 01/24/18 21:59 Last Infusion: 01/23/18 01:15 Dose: 0 mls/hr Insulin Aspart (Novolog Insulin Correctional Sugar Inj) 0 unit SQ ACHS [facility]; Protocol Last Admin: 01/23/18 12:25 Dose: Not Given Insulin Detemir (Levemir Inj) 10 unit SQ BID [facility] Last Admin: 01/23/18 08:49 Dose: 10 unit Lactulose (Lactulose Liq) 30 ml PO DAILY PRN PRN Reason: SEVERE CONSITIPATION Midodrine (Proamatine) 5 mg PO TID@0700,1200,1700 [facility] Last Admin: 01/23/18 12:25 Dose: Not Given Ondansetron HCl (Zofran Inj) 4 mg IV.PUSH Q6H PRN PRN Reason: NAUSEA OR VOMITING Oxycodone/Acetaminophen (Percocet 5/325 Mg) 1 tab PO Q6H PRN PRN Reason: Pain 5-10 Last Admin: 01/23/18 03:11 Dose: 1 tab Polyethylene Glycol (Miralax) 17 gm PO DAILY [facility] Potassium Chloride (K-Dur) 20 meq PO BID [facility] Last Admin: 01/23/18 08:49 Dose: 20 meq Pregabalin (Lyrica) 50 mg PO Q8HR [facility] Last Admin: 01/23/18 12:59 Dose: 50 mg Senna/Docusate Sodium (Li-Colace) 1 tab PO BID [facility] Last Admin: 01/23/18 08:49 Dose: 1 tab Sennosides (Senokot) 17.2 mg PO Q12H PRN PRN Reason: Moderate Constipation Sodium Chloride (Ns Flush) 2 ml IV.FLUSH BID [facility] Last Admin: 01/23/18 08:50 Dose: 2 ml Sodium Chloride (Ns Flush) 2 ml IV.FLUSH PRN PRN PRN Reason: FLUSH AFTER USING IV ACCESS Tetracycline HCl (Sumycin) 500 mg PO Q6HR [facility] Last Admin: 01/23/18 12:59 Dose: 500 mg Allergies/Adverse Reactions: Allergies Allergy/AdvReac Type Severity Reaction Status Date / Time No Known Allergies Allergy Verified 01/09/18 18:52 Physical Exam Vital signs: Vital Signs 01/22/18 20:00 01/23/18 00:09 01/23/18 00:25 Temperature 97.6 F Pulse Rate 92 H 90 Respiratory Rate 18 18 18 Blood Pressure 157/86 H 155/83 H Pulse Oximetry 96 01/23/18 00:43 01/23/18 04:00 01/23/18 04:58 Temperature 98.7 F 98.4 F Pulse Rate 95 H 90 Respiratory Rate 18 18 Blood Pressure 145/87 H 150/90 H Pulse Oximetry 99 98 01/23/18 07:35 01/23/18 12:00 01/23/18 15:15 Temperature 97.7 F 97.7 F 97.9 F Pulse Rate 96 H 90 98 H Respiratory Rate 20 20 20 Blood Pressure 133/88 152/94 H 129/76 Pulse Oximetry 97 97 97 Intake & Output 01/22/18 01/23/18 01/23/18 18:59 06:59 18:59 Intake Total 1940 / 1940 442 / 442 Output Total 2600 / 2600 2600 / 2600 Balance -660 / -660 -2158 / -2158 Intake: IV 0 / 0 D5W Inj 500 ML @ 30 mls/hr 0 / 0 OTHER Q24H [facility] Rx#:[id number] Oral 940 / 940 442 / 442 Tube Feeding 1000 / 1000 Output: Urine 1700 / 1700 2600 / 2600 Urine Amount (Catheter) 900 / 900 Indwelling Urethral Catheter 900 / 900 Other: Date of Last Bowel Movement 01/22/18 01/22/18 01/22/18 # Incontinent Bowel Movements 1 - Routine Neurological Exam alert speech normal CN intact MOTOR 4/5 BUE and BLE - Urinary Catheter Management Indwelling Urethral Catheter Cath placed during this visit: yes Reason for continuing: Acute urinary retention Insertion date: 01/19/18 Objective Laboratory Results - last 24 hr 01/22/18 01/22/18 01/23/18 17:19 23:27 07:34 POC Glucose 204 H 150 H 125 H 01/23/18 12:06 POC Glucose 173 H Review/Management - Review/Management Plan: continue ivig for total of 5 treatments--stop ivig after todays treatment Transfer back to rehab tomorrow
[2018-01-23] MEDS: Polyethylene Glycol 3350 17 GM Packet PO SCH (17:45)
[2018-01-23] MEDS: Enoxaparin Inj 40 MG/0.4 ML Syringe SQ SCH (17:45)
[2018-01-23] MEDS: Acetaminophen 325 MG Tablet PO SCH (21:14)
[2018-01-24] MEDS: Pregabalin 25 MG Capsule PO SCH ×3 (06:02→22:30)
[2018-01-24] MEDS: Baclofen 10 MG Tablet PO SCH ×3 (06:02→22:33)
[2018-01-24] MEDS: TETRACYCLINE 250 MG PO SCH ×3 (06:02→17:47)
[2018-01-24 06:23] LABS: Hematocrit 42.4 % (39.0-51.0); Hemoglobin 14.9 gm/dL (13.0-17.0); Mean Corpuscular HGB Conc 35.2 % (32.0-36.0); Mean Corpuscular Hemoglobin 31.1 pg (27.0-34.0); Mean Corpuscular Volume 88.3 fL (80.0-100.0); Mean Platelet Volume 7.7 fL (7.0-11.0); Platelet Count 162 th/mm3 (150-450); Red Cell Distribution Width 17.3 % (11.6-17.2); White Blood Count 3.1 th/mm3 (4.0-11.0)
[2018-01-24 06:51] LABS: Anion Gap 6 meq/L (5-15); Blood Urea Nitrogen 8 mg/dL (7-18); Calcium 8.4 mg/dL (8.5-10.1); Carbon Dioxide 26.7 meq/L (21.0-32.0); Chloride 106 meq/L (98-107); Glomerular Filtration Rate Greater Than 89 mL/min (>89); Glucose,Random 70 mg/dL (74-106); Potassium 3.9 meq/L (3.5-5.1); Sodium 139 meq/L (136-145)
[2018-01-24] MEDS: Insulin NovoLOG Aspart Correctional Sugar Inj SQ SCH ×4 (09:05→22:41)
[2018-01-24] MEDS: Famotidine 20 MG Tablet PO SCH ×2 (09:06→22:34)
[2018-01-24] MEDS: Finasteride 5 MG Tablet PO SCH (09:06)
[2018-01-24] MEDS: Insulin Detemir Inj 1,000 UNIT/10 ML Vial SQ SCH ×2 (09:06→22:31)
[2018-01-24] MEDS: Polyethylene Glycol 3350 17 GM Packet PO SCH (09:06)
[2018-01-24] MEDS: Senna/Docusate Sodium 8.6/50 MG Tablet PO SCH ×2 (09:07→22:34)
--- NOTE | 2018-01-24 09:19 | P.DS ---
Date of admission: 01/19/18 19:16 Primary care physician: No Primary Care Physician Attending physician on discharge: Salbador Parekh Anticipated date of discharge: 01/24/18 Brief History from admission: Patient is a 63-year-old male with past medical history of BPH, diabetes type 2 , peripheral neuropathy who initially came into [facility] near [facility] in August diagnosed with DKA. Patient was readmitted to the hospital in [place] for a 3-week stay for pneumonia. He was doing well but has been back to [facility] in [place] due to increasing or worsening bilateral lower extremity weakness, dizziness. Patient also reports multiple episodes of dropping his blood pressure. Per review of records patient was working with physical therapy in the outpatient setting and felt dizzy and noted that his blood pressure dropped to 60/45 and was transferred to the hospital. He was diagnosed with orthostatic hypotension secondary to autonomic peripheral neuropathy as well as volume depletion. Patient was provided with compression stockings, abdominal binder, his Coreg was changed to metoprolol. He was seen by watch engineer and recommended to have outpatient tilt table test. Per review of records, patient also was diagnosed with diabetic neuropathy versus spinal stenosis versus CI DP and was started on Lyrica 50 mg p.o. 3 times a day as needed and recently started on prednisone during his previous hospital admission. His hospitalization was also complicated with hyponatremia , diagnosed with systolic congestive heart failure with an EF of 40% stress test showed no ischemic changes, EKG showed sinus tach with no acute ischemic changes. Patient also found to have urinary retention were in Chowdhury catheter was placed recommended to follow-up for cystoscopy and urodynamics in the outpatient. Currently on finasteride versus Flomax secondary to syncopal episodes and orthostatic hypotension. He was admitted to [place] [facility] on . While in [place], patient continued to have orthostatic hypotension. His antihypertensive medications were held. Bilateral lower extremity weakness continues. MRI of the brain was negative. MRI of the lumbar spine showed degenerative disease at both L5-S1 and L4-L5, impressive muscular edema in the paravertebral musculature posteriorly, correlate for diffuse myositis. MRI of the cervical spine showed multilevel disc protrusions with mild degree of canal stenosis at C4-5 and C5-6 and a symmetrically left-sided foraminal stenosis at C6-7. Thoracic MRI showed mild compression fracture deformities at T5, T6 and T7 vertebral bodies with mild marrow edema. Appears to be acute on subacute. No retropulsion. Mild disc bulge at T8-9 with mild flattening of the anterior thecal sac. Neurosurgery was consulted for the patient for continued weakness in his bilateral lower extremities and multiple falls since August. 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 No intervention recommended from the neurological standpoint. Patient was seen by Dr. 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 Recommending IVIG or plasmapheresis. He is now transferred to the inpatient setting for IVIG administration. Patient seen and examined today. at the bedside. Reports aside from bilateral lower extremity weakness states he is doing okay. Reports urinary retention with Chowdhury catheter in place. Denies any dysuria but states because of the urinary tract infection he is unable to void properly and having dysuria prior. After being given antibiotics states that the dysuria has improved. States bowel incontinence. States he is able to feel the urge but has no control on it. States after his hospitalization for DKA his diabetes has been fairly controlled at home. Patient states that he was also worked up for Nurys Sprague in [facility]. States he continues to have occasional dizziness and orthostatic hypotension but is able to be better compared to before as he prepares himself to be sitting up prior to standing. Denies pain and discomfort. Denies SOB/ dyspnea. Denies chest pain, palpitations, headaches. Denies fevers, chills, n/v/d. Denies dysuria. Patient update on day of discharge: Follow-up visit BPH, DM 2, peripheral neuropathy, GBS for IVIG infusion and discharge planning. Patient seen and examined lying in bed, denies any chest pain or SOB. C/o right hip pain, stated just had pain medication about an hour ago. Patient stated sleeping well and eating well. If any fever or chills denies any headache or dizziness, denies any abdominal pain, nausea, vomiting, diarrhea or constipation.Patient stated ready to go to rehab. Nurse reports that patient just finished infusion of IVIG. Will arrange for transfer for [place] [facility] today. DS: Diagnosis - Discharge Diagnosis (1) Orthostatic hypertension Status: Acute (2) Impaired mobility and activities of daily living Status: Acute (3) Diabetic peripheral neuropathy Status: Acute (4) Autonomic dysfunction with type 2 diabetes mellitus Status: Acute (5) Urinary retention due to benign prostatic hyperplasia Status: Acute (6) Systolic CHF Status: Chronic (7) Weakness of both lower extremities Status: Acute DS: Summary Hospital Course: Patient is a 62-year-old male with past medical history of DM 2, BPH, urinary retention, peripheral neuropathy initially at 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 Followed by neurologist, Dr. Nguyen, recommended IVIG administration for 5 doses. Patient also managed for orthostatic hypotension, Systolic HF with EF 40%, DM 2,and Peripheral neuropathy . Patient also had recent UTI with MDR on antibiotic treatment and urinary retention currently with Chowdhury catheter. Patient is status stable and may be discharged to [place] and rehab to continue rehabilitation and medical management. - Time Spent with Patient Total time spent providing and/or coordinating discharge services: Less than 30 minutes - Quality: VTE Deep Vein Thrombosis/Pulmonary Embolism Present on Admission: No Exam Vital signs: Vital Signs 01/23/18 12:00 01/23/18 15:15 01/23/18 20:00 Temperature 97.7 F 97.9 F 98.2 F Pulse Rate 90 98 H 86 Respiratory Rate 20 20 20 Blood Pressure 152/94 H 129/76 155/76 H Pulse Oximetry 97 97 98 01/23/18 22:52 01/23/18 23:04 01/24/18 00:00 Temperature 98.2 F 97.3 F L Pulse Rate 79 64 68 Respiratory Rate 18 18 18 Blood Pressure 145/85 H 145/85 H 129/85 Pulse Oximetry 97 97 01/24/18 04:00 01/24/18 06:35 01/24/18 07:40 Temperature 97.2 F L 98.0 F Pulse Rate 88 73 Respiratory Rate 20 20 20 Blood Pressure 148/83 H 155/89 H Pulse Oximetry 97 97 Intake & Output 01/23/18 01/24/18 01/24/18 18:59 06:59 18:59 Intake Total 1500 / 1500 2100 / 2100 Output Total 750 / 750 1200 / 1200 Balance 750 / 750 900 / 900 Intake: IV 1150 / 1150 NS Inj 500 ML @ 500 mls/hr IV. 1000 / 1000 SIG Q24H GABRIELA Rx#:[id number] D5W Inj 500 ML @ 30 mls/hr 150 / 150 OTHER Q24H GABRIELA Rx#:[id number] Oral 1500 / 1500 950 / 950 Output: Urine 1200 / 1200 Urine Amount (Catheter) 750 / 750 Indwelling Urethral Catheter 750 / 750 Other: Date of Last Bowel Movement 01/22/18 01/22/18 # Incontinent Bowel Movements 1 Narrative: GENERAL: Well-developed, thin appearing male in no apparent distress SKIN: Warm and dry. HEAD: Atraumatic. Normocephalic. EYES: Pupils equal and round. No scleral icterus. No injection or drainage. ENT: No nasal bleeding or discharge. Mucous membranes pink and moist. NECK: Trachea midline. No JVD. CARDIOVASCULAR: Regular rate and rhythm. RESPIRATORY: No accessory muscle use. Clear to auscultation. Breath sounds equal bilaterally. GASTROINTESTINAL: Abdomen soft, non-tender, nondistended. Hepatic and splenic margins not palpable. : Chowdhury in place with clear yellow urine MUSCULOSKELETAL: Extremities without clubbing, cyanosis, or edema. No obvious deformities. NEUROLOGICAL: Awake and alert and oriented x3. Bilateral upper extremity with 5 out of 5 equal strength. Bilateral lower extremity weakness 2 out of 5 with bilateral heel boots. Normal speech. PSYCHIATRIC: Appropriate mood and affect; insight and judgment normal. Results Procedures completed during hospitalization: n/a Labs on day of discharge: Labs from last 24 hours 01/24/18 01/24/18 01/24/18 07:36 05:39 05:39 WBC 3.1 L RBC 4.80 Hgb 14.9 Hct 42.4 MCV 88.3 MCH 31.1 MCHC 35.2 RDW 17.3 H Plt Count 162 MPV 7.7 Sodium 139 Potassium 3.9 Chloride 106 Carbon Dioxide 26.7 Anion Gap 6 BUN 8 Creatinine 0.36 L Estimated GFR Greater than 89 POC Glucose 79 Random Glucose 70 L Calcium 8.4 L 01/23/18 01/23/18 01/23/18 20:56 17:08 12:06 WBC RBC Hgb Hct MCV MCH MCHC RDW Plt Count MPV Sodium Potassium Chloride Carbon Dioxide Anion Gap BUN Creatinine Estimated GFR POC Glucose 170 H 220 H 173 H Random Glucose Calcium Discharge Plan - Discharge Disposition Patient Disposition: 62 Rehab Inpatient - Discharge Condition Condition: Stable - Discharge Order Discharge Orders: Discharge Order (Routine); Ordered 01/24/18 Ordered By: Ophelia Carvalho - Discharge Details Anticipated Discharge Date: 01/24/18 Discharge Comment: DC to [place] - Physicians Team Primary Care Provider: Primary Care Greg,Lilly Attending Provider: Salbador Parekh Other Providers: Tenisha Byers MD - Rxs /Orders / Referrals /Forms Prescriptions: New baclofen 10 mg Tablet 10 mg PO Q8HR RF: 0 diphenhydramine HCl 50 mg/mL Solution 50 mg IV.PUSH PRN PRN (Reason: Allergic Reaction) RF: 0 tetracycline 250 mg Capsule 500 mg PO Q6HR 3 Days RF: 0 Continue acetaminophen 325 mg Tablet 650 mg PO Q4H PRN (Reason: Fever/ Pain 1-3) RF: 0 aspirin 81 mg Tablet,Delayed Release (Dr/Ec) 81 mg PO DAILY RF: 0 bisacodyl [Bisac-Evac] 10 mg Suppository 10 mg LA DAILY PRN (Reason: Severe Consitipation) RF: 0 dextrose 50 % in water (D50W) Parenteral Solution 50 ml IV.PUSH UNSCH PRN (Reason: Per Hypoglycemia Protocol) RF: 0 enoxaparin [Lovenox] 40 mg/0.4 mL Syringe 40 mg subcut DAILY RF: 0 famotidine 20 mg Tablet 20 mg PO BID RF: 0 finasteride 5 mg Tablet 5 mg PO DAILY RF: 0 glucagon (human recombinant) [GlucaGen Diagnostic Kit] 1 mg/mL Recon Soln 1 mg OTHER PRN PRN (Reason: for Hypoglycemia Protocol) RF: 0 insulin aspart U-100 [Novolog U-100 Insulin aspart] 100 unit/mL Solution 0 unit subcut ACHS RF: 0 insulin detemir U-100 [Levemir U-100 Insulin] 100 unit/mL Solution 10 unit subcut BID RF: 0 lactulose 20 gram/30 mL Solution 30 ml PO DAILY PRN (Reason: Severe Consitipation) RF: 0 lidocaine [Lidoderm] 5 % Adhesive Patch,Medicated 1 patch Transdermal DAILY RF: 0 magnesium hydroxide [Milk of Magnesia] 400 mg/5 mL Suspension 30 ml PO Q12H PRN (Reason: Mild Constipation) RF: 0 midodrine 5 mg Tablet 5 mg PO BID@07,12 RF: 0 oxycodone-acetaminophen 5-325 mg Tablet 1 tab PO Q6H PRN (Reason: Pain 5-10) RF: 0 polyethylene glycol 3350 17 gram Powder In Packet 17 gm PO BID RF: 0 potassium chloride 20 mEq Tablet,Er Particles/Crystals 20 meq PO BID@ RF: 0 pregabalin [Lyrica] 25 mg Capsule 50 mg PO Q8H RF: 0 sennosides [Senna Lax] 8.6 mg Tablet 17.2 mg PO Q12H PRN (Reason: Moderate Constipation) RF: 0 sennosides-docusate sodium [Senna Plus] 8.6-50 mg Tablet 1 tab PO BID RF: 0 sulfamethoxazole-trimethoprim 800-160 mg Tablet 1 tab PO Q12HR RF: 0 white petrolatum [Aquaphor Healing] 41 % Ointment 1 applicatio Topical BID RF: 0 Referrals: Bernard Nguyen MD, PhD [Physician] - See Instructions (follow-up in 1 week) Primary Care Lilly Garza [Primary Care Provider] - See Instructions - Discharge Instructions Patient Printed Instructions: Tetracycline (By mouth), Diphenhydramine (By mouth), Baclofen (By mouth) - Post Discharge Care Plan Care Plan Goals: Your Health Problems: Goals to Promote Your Health: * To prevent worsening of your condition * To maintain your health at the optimal level Directions to Meet Your Goals: * Take your medications as prescribed * Follow your dietary instruction * Follow activity as directed * Keep your appointments as scheduled * Take your immunizations and boosters as scheduled * If your symptoms worsen call your PCP * If no PCP go to Urgent Care or Emergency Room Smoking is dangerous to your health. Avoid second hand smoke. You may reach the 24-hour crisis hotline for domestic abuse at .
[2018-01-24] MEDS: Enoxaparin Inj 40 MG/0.4 ML Syringe SQ SCH (17:47)
[2018-01-25] MEDS: TETRACYCLINE 250 MG PO SCH ×4 (00:45→19:36)
[2018-01-25] MEDS: Baclofen 10 MG Tablet PO SCH ×3 (05:18→21:02)
[2018-01-25] MEDS: Pregabalin 25 MG Capsule PO SCH ×3 (05:18→21:02)
[2018-01-25] MEDS: Senna/Docusate Sodium 8.6/50 MG Tablet PO SCH ×2 (09:00→20:41)
[2018-01-25] MEDS: Insulin Detemir Inj 1,000 UNIT/10 ML Vial SQ SCH ×2 (09:00→20:52)
[2018-01-25] MEDS: Famotidine 20 MG Tablet PO SCH ×2 (09:00→20:41)
[2018-01-25] MEDS: Finasteride 5 MG Tablet PO SCH (09:00)
--- NOTE | 2018-01-25 09:29 | P.PNIM ---
Subjective Interval history: Follow-up visit GBS with IVIG infusion, peripheral neuropathy generalized weakness, BPH, DM 2, and discharge planning. Patient seen and examined, laying in bed, stated feeling better. Patient stated had a good night sleep and ate good breakfast. Patient stated was standing up for a little bit yesterday with PT. Patient complains of lower leg pain, both legs at 7 out of 10 and controlled by pain medication at 2 out of 10. Pain is worse to touch or movement. Better with rest. Patient denies any headache or dizziness, denies any chest pain or shortness of breath, denies any abdominal pain, nausea, vomiting, diarrhea or constipation. Patient denies any fever or chills. Physical Exam Vital signs: Vital Signs 01/24/18 11:15 01/24/18 16:30 01/24/18 20:00 Temperature 97.6 F 97.7 F 98.0 F Pulse Rate 90 84 91 H Respiratory Rate 20 20 18 Blood Pressure 149/89 H 140/82 134/79 Pulse Oximetry 96 96 96 01/25/18 00:00 01/25/18 04:00 01/25/18 06:04 Temperature 98.5 F 98.6 F Pulse Rate 95 H 90 Respiratory Rate 18 18 Blood Pressure 139/82 147/82 H Pulse Oximetry 97 96 Intake & Output 01/24/18 01/25/18 01/25/18 18:59 06:59 18:59 Intake Total 1150 / 1150 663 / 663 Output Total 1949 1375 / 1375 Balance -800 / -800 -1375 / -1375 663 / 663 Weight 70.4 kg Intake: IV 150 / 150 D5W Inj 500 ML @ 30 mls/hr 150 / 150 OTHER Q24H GABRIELA Rx#:[id number] Oral 1000 / 1000 663 / 663 Output: Urine 1375 / 1375 Urine Amount (Catheter) 1949 Indwelling Urethral Catheter 1949 Other: Date of Last Bowel Movement 01/24/18 01/25/18 # Bowel Movements 1 # Incontinent Bowel Movements 1 1 1 Narrative: GENERAL: Well-developed, thin appearing male in no apparent distress SKIN: Warm and dry. HEAD: Atraumatic. Normocephalic. EYES: Pupils equal and round. No scleral icterus. No injection or drainage. ENT: No nasal bleeding or discharge. Mucous membranes pink and moist. NECK: Trachea midline. No JVD. CARDIOVASCULAR: Regular rate and rhythm. RESPIRATORY: No accessory muscle use. Clear to auscultation. Breath sounds equal bilaterally. GASTROINTESTINAL: Abdomen soft, non-tender, nondistended. Hepatic and splenic margins not palpable. : Chowdhury in place with clear yellow urine MUSCULOSKELETAL: Extremities without clubbing, cyanosis, or edema. No obvious deformities. NEUROLOGICAL: Awake and alert and oriented x3. Bilateral upper extremity with 5 out of 5 equal strength. Bilateral lower extremity weakness 2 out of 5 with bilateral heel boots. Normal speech. PSYCHIATRIC: Appropriate mood and affect; insight and judgment normal. - Urinary Catheter Management Indwelling Urethral Catheter Cath placed during this visit: yes Reason for continuing: Chronic Urinary Retention Insertion date: 01/19/18 Results - Labs CBC & Chem 7: 01/24/18 05:39 01/24/18 05:39 Laboratory Results - last 24 hr 01/24/18 01/24/18 01/24/18 11:26 17:30 22:41 POC Glucose 150 H 171 H 156 H Assessment and Plan - Assessment (1) Orthostatic hypertension Code(s): I10 - Essential (primary) hypertension Status: Acute (2) Impaired mobility and activities of daily living Code(s): Z74.09 - Other reduced mobility Status: Acute (3) Diabetic peripheral neuropathy Code(s): E11.42 - Type 2 diabetes mellitus with diabetic polyneuropathy Status : Acute (4) Autonomic dysfunction with type 2 diabetes mellitus Code(s): E11.43 - Type 2 diabetes mellitus with diabetic autonomic (poly) neuropathy Status: Acute (5) Urinary retention due to benign prostatic hyperplasia Code(s): N40.1 - Benign prostatic hyperplasia with lower urinary tract symptoms ; R33.8 - Other retention of urine Status: Acute (6) Systolic CHF Code(s): I50.20 - Unspecified systolic (congestive) heart failure Status: Chronic (7) Weakness of both lower extremities Code(s): R29.898 - Other symptoms and signs involving the musculoskeletal system Status: Acute - Plan Patient is a 62-year-old male with past medical history of DM 2, BPH, urinary retention, peripheral neuropathy initially at [facility] and was transferred for continuous bilateral lower extremity weakness 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 Nguyen, appreciate recommendations -IVIG administration, dose per neurology x 5 doses, completed 01/24/18 -Continue with physical therapy and occupational therapy -pain management Percocet, Lyrica with bowel regimen Orthostatic hypotension -improving -Continue to hold off on BP medication -Midodrine 3 times daily -Increased risk for falls, monitor. Assist with transfers. DM 2 Peripheral neuropathy -Blood sugar fair controlled -Continue with Lyrica 3 times daily, Percocet as needed -Continue Levemir 10 units twice daily, insulin sliding scale -Monitor Accu-Cheks Ac and HS with Insulin Sliding scale Urinary retention -Currently with Chowdhury catheter -Continue finasteride -Chowdhury care Urinary tract infection -Recent cultures growing staph epidermidis, multidrug-resistant -continue tetracycline until 01/26/18 -Continue to monitor signs and sxs. Systolic heart failure, EF 40% Not in exacerbation -Previously was on BERTIN inhibitor but was held secondary to orthostatic BP DVT Prop Lovenox GI Prop Pepcid Code Status: full code Discussed Condition With: patient and nurse Discharge Planning: Discharge to rehab when placement available. hvac services professional please assist with placement (6) Systolic CHF Qualifiers: Heart failure chronicity: chronic Qualified Code(s): I50.22 - Chronic systolic (congestive) heart failure
[2018-01-25] MEDS: Polyethylene Glycol 3350 17 GM Packet PO SCH (11:40)
[2018-01-25] MEDS: Insulin NovoLOG Aspart Correctional Sugar Inj SQ SCH ×4 (12:00→21:21)
[2018-01-25] MEDS: Enoxaparin Inj 40 MG/0.4 ML Syringe SQ SCH (18:00)
[2018-01-25 20:41] VITALS: RESP 20
[2018-01-26] MEDS: TETRACYCLINE 500 MG PO SCH ×2 (00:32→06:42)
[2018-01-26 04:53] VITALS: O2SAT 96
[2018-01-26] MEDS: Baclofen 10 MG Tablet PO SCH (06:42)
[2018-01-26] MEDS: Pregabalin 25 MG Capsule PO SCH (06:42)
[2018-01-26 09:08] VITALS: BP 167/87; PULSE 66; TEMP 97.8
[2018-01-26] MEDS: Famotidine 20 MG Tablet PO SCH (09:29)
[2018-01-26] MEDS: Finasteride 5 MG Tablet PO SCH (09:29)
[2018-01-26] MEDS: Insulin Detemir Inj 1,000 UNIT/10 ML Vial SQ SCH (09:29)
[2018-01-26] MEDS: Senna/Docusate Sodium 8.6/50 MG Tablet PO SCH (09:38)
[2018-01-26] MEDS: Insulin NovoLOG Aspart Correctional Sugar Inj SQ SCH (09:41)
[2018-01-26] MEDS: Polyethylene Glycol 3350 17 GM Packet PO SCH (09:42)
--- NOTE | 2018-01-26 10:28 | P.PNIM ---
Subjective Interval history: Follow-up for hypertension, orthostatic hypotension, GBS status post IVIG infusion. Patient seen and examined laying in bed, complains of lower leg pain at 7 out of 10, just had pain medication few minutes ago. Patient denies any headache or dizziness, denies any chest pain, shortness of breath, abdominal pain, nausea, vomiting, diarrhea or constipation. Patient denies any fever or chills. Nurse denies any acute issues overnight Physical Exam Vital signs: Last Vital Signs Temp 97.8 F 01/26/18 07:40 Pulse 66 01/26/18 07:40 Resp 20 01/26/18 07:40 BP 167/87 H 01/26/18 07:40 Pulse Ox 96 01/26/18 07:40 Intake & Output 01/24/18 01/25/18 01/26/18 01/27/18 06:59 06:59 06:59 06:59 Intake Total 3600 / 3600 1150 / 1150 1962 / 1962 Output Total 1950 / 1950 3325 / 3325 1974 / 1974 Balance 1650 / 1650 -2175 / -2175 - Weight 70.4 kg Narrative: GENERAL: Well-developed, thin appearing male in no apparent distress SKIN: Warm and dry. HEAD: Atraumatic. Normocephalic. EYES: Pupils equal and round. No scleral icterus. No injection or drainage. ENT: No nasal bleeding or discharge. Mucous membranes pink and moist. NECK: Trachea midline. No JVD. CARDIOVASCULAR: Regular rate and rhythm. RESPIRATORY: No accessory muscle use. Clear to auscultation. Breath sounds equal bilaterally. GASTROINTESTINAL: Abdomen soft, non-tender, nondistended. Hepatic and splenic margins not palpable. : Chowdhury in place with clear yellow urine MUSCULOSKELETAL: Extremities without clubbing, cyanosis, or edema. No obvious deformities. NEUROLOGICAL: Awake and alert and oriented x3. Bilateral upper extremity with 5 out of 5 equal strength. Bilateral lower extremity weakness 2 out of 5, left stronger than right, with bilateral heel boots. Normal speech. PSYCHIATRIC: Appropriate mood and affect; insight and judgment normal. Urinary Catheter Management Indwelling Urethral Catheter: Cath placed during this visit: yes Urethral indwelling: Yes Reason for continuing: Acute urinary retention Insertion date: 01/19/18 Results Labs CBC & Chem 7: 01/24/18 05:39 01/24/18 05:39 Assessment and Plan (1) Orthostatic hypertension: Code(s): I10 - Essential (primary) hypertension Status: Acute (2) Impaired mobility and activities of daily living: Code(s): Z74.09 - Other reduced mobility Status: Acute (3) Diabetic peripheral neuropathy: Code(s): E11.42 - Type 2 diabetes mellitus with diabetic polyneuropathy Status: Acute (4) Autonomic dysfunction with type 2 diabetes mellitus: Code(s): E11.43 - Type 2 diabetes mellitus with diabetic autonomic (poly)neuropathy Status: Acute (5) Urinary retention due to benign prostatic hyperplasia: Code(s): N40.1 - Benign prostatic hyperplasia with lower urinary tract symptoms; R33.8 - Other retention of urine Status: Acute (6) Systolic CHF: Code(s): I50.20 - Unspecified systolic (congestive) heart failure Status: Chronic (7) Weakness of both lower extremities: Code(s): R29.898 - Other symptoms and signs involving the musculoskeletal system Status: Acute Plan Patient is a 62-year-old male with past medical history of DM 2, BPH, urinary retention, peripheral neuropathy initially at [facility] and was transferred for continuous bilateral lower extremity weakness 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 Nguyen, appreciate recommendations -IVIG administration, dose per neurology x 5 doses, completed 01/24/18 -Continue with physical therapy and occupational therapy -pain management Percocet, Lyrica with bowel regimen Orthostatic hypotension Hypertension, Likely related to Midodrin use -Continue to hold off on BP medication -Decrease midodrine dose, monitor blood pressure adjust dose as necessary -Increased risk for falls, monitor. Assist with transfers. DM 2 Peripheral neuropathy -Blood sugar fair controlled -Continue with Lyrica 3 times daily, Percocet as needed -Continue Levemir 10 units twice daily, insulin sliding scale -Monitor Accu-Cheks Ac and HS with Insulin Sliding scale Urinary retention -Currently with Chowdhury catheter -Continue finasteride -Chowdhury care Urinary tract infection -Recent cultures growing staph epidermidis, multidrug-resistant -continue tetracycline until 01/26/18 -Continue to monitor signs and sxs. Systolic heart failure, EF 40% Not in exacerbation -Previously was on BERTIN inhibitor but was held secondary to orthostatic BP DVT Prop Lovenox GI Prop Pepcid Discharge Planning: Discharge to rehab when placement available. rehabilitation services coordinator please assist with placement Progress Note: Quality VTE Deep Vein Thrombosis/Pulmonary Embolism Present on Admission: No _ (1) Systolic CHF Qualifiers: Heart failure chronicity: chronic Qualified Code(s): I50.22 - Chronic systolic (congestive) heart failure
== END 2018-01-26 11:41 ==
LOC: N05 19:16
PROVIDERS: ADMIT Hospitalist; ATTEND Hospitalist
DX: E11.42 Type 2 diabetes mellitus with diabetic polyneuropathy; N40.1 Benign prostatic hyperplasia with lower urinary tract symptoms; R33.8 Other retention of urine; Z16.24 Resistance to multiple antibiotics; I95.1 Orthostatic hypotension; N39.0 Urinary tract infection, site not specified; H54.7 Unspecified visual loss; G61.0 Guillain-Barre syndrome; E11.43 Type 2 diabetes mellitus with diabetic autonomic (poly)neuropathy; I50.22 Chronic systolic (congestive) heart failure